=== PATIENT | female | born 1980 | race Caucasian/White ===

== ENCOUNTER 2017-02-15 09:54 | Day surgery (SDC) | payer BC, OTHER ==
[2017-02-11 09:55] LABS: BASOPHILS # (AUTO) 0.2 K/uL (0.00-0.22); BASOPHILS % (AUTO) 4.7 % (0.0-2.0); EOSINOPHILS # (AUTO) 0.1 K/uL (0-0.4); EOSINOPHILS % (AUTO) 1.3 % (0.0-4.0); HEMATOCRIT 40.3 % (36-48); HEMOGLOBIN 13.7 g/dL (12.0-16.0); LYMPHOCYTES # (AUTO) 0.9 K/uL (2.5-16.5); MEAN CORPUSCULAR HEMOGLOBIN 30 pg (27-31); MEAN CORPUSCULAR HGB CONC 34 g/dL (33-37); MEAN CORPUSCULAR VOLUME 89 fL (80-94); MONOCYTES # (AUTO) 0.4 K/uL (0.8-1.0); MONOCYTES % (AUTO) 8.6 % (1.7-9.3); NEUTROPHILS # (AUTO) 3.3 K/uL (1.8-7.7); NEUTROPHILS % (AUTO) 66.4 % (42.2-75.2); PLATELET COUNT (AUTO) 230 K/uL (140-450); RED BLOOD CELL COUNT(AUTO) 4.56 MIL/uL (4.20-5.40); RED CELL DISTRIBUTION WIDTH 11.6 % (11.6-13.7); WHITE BLOOD COUNT (AUTO) 4.9 K/uL (4.8-10.8)
[2017-02-11 10:02] LABS: ALBUMIN 4.1 g/dL (3.4-5.0); ANION GAP 4.6 (8-16); CARBON DIOXIDE 34.4 mmol/L (21-32); CREATININE 0.7 mg/dL (0.6-1.3); TOTAL BILIRUBIN 0.7 mg/dL (0.0-1.0)
[~2017-02-15] VITALS: Ht 160 cm; Wt 58.1 kg
[2017-02-15] MEDS ORDERED: BUPIVACAINE-MPF 0.25% 30 ML VIAL INJ ONE (12:57)
[2017-02-15] MEDS ORDERED: MIDAZOLAM 2 MG/2 ML VIAL ONE (13:02)
[2017-02-15] MEDS ORDERED: fentaNYL 0.05 MG/ML VIAL ONE (13:03)
[2017-02-15] MEDS ORDERED: MEPERIDINE 50 MG/ML SYR ONE (13:03)
[2017-02-15] MEDS ORDERED: ONDANSETRON 4 MG/2 ML VIAL ONE (13:10)
[2017-02-15] MEDS ORDERED: DEXAMETHASONE 4 MG/ML VIAL ONE (13:10)
[2017-02-15] MEDS ORDERED: SEVOFLURANE 250 ML BTL INH ONE (13:10)
[2017-02-15] MEDS ORDERED: PROPOFOL 200 MG/20 ML VIAL IV ONE (13:10)
[2017-02-15] MEDS ORDERED: ONDANSETRON 4 MG/2 ML VIAL IVP PRN (13:45)
[2017-02-15] MEDS ORDERED: diphenhydrAMINE 50 MG/ML VIAL IVP PRN (13:45)
[2017-02-15] MEDS ORDERED: MEPERIDINE 25 MG/ML SYR IVP PRN (13:45)
[2017-02-15] MEDS ORDERED: HYDROmorphone 1 MG/ML AMP IVP PRN ×2 (13:45→14:00)
[2017-02-15] MEDS ORDERED: LACTATED RINGERS 1,000 ML IV SCH (13:45)
[2017-02-15] MEDS ORDERED: HYDROcodone/APAP 5/325 MG 1 TAB TAB PO PRN (14:00)
[2017-02-15] MEDS ORDERED: MORPHINE SULFATE 4 MG/ML SYR IV PRN (14:00)
[2017-02-15] MEDS ORDERED: ONDANSETRON 4 MG/2 ML VIAL IV PRN (14:00)
[2017-02-15] MEDS ORDERED: NACL 0.9% 1,000 ML IV SCH (14:00)
== END 2017-02-15 15:25 | disposition home or self-care (01) ==
LOC: MDS 09:54 → MMU 09:57 → MDS 15:25
PROVIDERS: ATTEND Surgery
DX: N63.20 Unspecified lump in the left breast, unspecified quadrant (principal); Z80.3 Family history of malignant neoplasm of breast; Z98.890 Other specified postprocedural states; Z79.899 Other long term (current) drug therapy
CPT/HCPCS: 19120; 36415; 71010; 80053; 81025; 85025; J1100; J2175; J2250; J2405; J2704; J3010; J3490